=== PATIENT | female | born 1960 | race Caucasian/White ===

== ENCOUNTER 2016-12-24 15:48 | Emergency (ER) | payer OTHER ==
[2016-12-24] MEDS ORDERED: Pantoprazole 40 MG Vial IVPUSH ONE (16:07)
[2016-12-24] MEDS ORDERED: Ondansetron 4 MG/2 ML SDV IVPUSH ONE (16:07)
[2016-12-24] MEDS ORDERED: Famotidine 20 MG/2 ML SDV IVPUSH ONE (16:07)
--- NOTE | 2016-12-24 16:07 | EDM.PDOC ---
ED HPI GENERAL MEDICAL PROBLEM - General Chief Complaint: Abdominal Pain Stated Complaint: abdominal muscle pain Time Seen by Provider: 12/24/16 16:00 Source of Information: Reports: Patient, Family (), Old Records ([facility] chart/EMR) History Limitations: Reports: No Limitations - History of Present Illness INITIAL COMMENTS - FREE TEXT/NARRATIVE: Patient was brought to the emergency room via private automobile by her for evaluation of nonspecific epigastric abdominal pain, which has been present for the last 3-4 days. The patient has been in a water aerobic exercise program , which has been vigorous in nature, with additional vigorous activity at home during the last week, however no known acute injury. Her pain did become more vigorous in nature at about 04:30 a.m. this morning, and she did notice some swelling and a bruise in her upper abdominal region earlier this morning with some nonspecific occasional nausea today. Patient has not taken any medications for her symptoms to this point or she did have a normal bowel movement at noon today. No recent history of other abdominal pain, heartburn, emesis, diarrhea, melena, gross hematochezia, or any food intolerance, including fatty foods, etc.. The patient also denies any recent fever, cough, wheezing, dyspnea, etc.. Onset: Today, Gradual Onset Date: 12/24/16 Onset Time: 04:30 Duration: Constant, Getting Worse, Other (As above) Location: Reports: Abdomen. Denies: Head, Face, Neck, Chest, Back, Pelvis, Upper Extremity, Left, Upper Extremity, Right, Lower Extremity, Left, Lower Extremity, Right, Generalized, Radiates to Quality: Reports: Sharp, Stabbing Severity: Moderate Improves with: Reports: Rest Worsens with: Reports: Movement Context: Reports: Other (As above) Associated Symptoms: Reports: Nausea/Vomiting (No emesis). Denies: Confusion, Chest Pain, Cough, Diaphoresis, Fever/Chills, Headaches, Loss of Appetite, Malaise, Seizure, Shortness of Breath, Syncope, Weakness Treatments [employer] CHIEF: Reports: Other (see below) (None) Upper Mid-Anterior Abdomen Pain Score (Numeric/FACES): 6 - Related Data Allergies Allergy/AdvReac Type Severity Reaction Status Date / Time Penicillins Allergy Hives Verified 12/24/16 15:50 Home Meds: Home Meds . [No Known Home Meds] 12/24/16 [History] Past Medical History HEENT History: Reports: Allergic Rhinitis, Impaired Vision, Sinusitis, Other ( See Below). Denies: Cataract, Glaucoma, Hard of Hearing, Macular Degeneration, Retinal Detachment Other HEENT History: history of allergic rhinitis and sinusitis, wears glasses, nasal septum deviation by CT scan Cardiovascular History: Reports: Arrhythmia, Cardiomyopathy, High Cholesterol, Syncope, Other (See Below). Denies: Afib, Aneurysm, Blood Clots/VTE/DVT, CAD, Heart Failure, Heart Murmur, Hypertension, AL Other Cardiovascular History: Cardiac arrest with required defibrillation and code during severe gynecological bleed from placenta previa with surgery required as below, cardiomegaly by chest x-ray, hyperlipidemia not currently under therapy, no history of hypertension however note preeclampsia during as below Respiratory History: Reports: Bronchitis, Recurrent, COPD, Intubation, Previous , Pulmonary Fibrosis, Other (See Below). Denies: Asthma, PE, Pneumothorax, TB Other Respiratory History: COPD and pulmonary fibrosis by chest x-ray with no current therapy Gastrointestinal History: Reports: Chronic Constipation, Chronic Diarrhea, Gastritis, GERD, Other (See Below). Denies: Celiac Disease, Cholelithiasis, Colon Polyp, GI Bleed, Hepatitis, Hiatal Hernia, Inflammatory Bowel Disease, Irritable Bowel Syndrome, Jaundice, Pancreatitis, PUD Other Gastrointestinal History: Strep gastritis, esophagitis, and benign gastric polyp at time of colonoscopy on 09/24/07, multiple benign bilateral hepatic hemangiomas by ultrasound and CT scans as below, possible history of colitis without known inflammatory bowel disease Genitourinary History: Reports: None. 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 Denies: Endometriosis, Fibroids : 3 Para: 2 LMP (Approximate): Menopausal Other OB/BYN History: Surgical menopause as below with severe hemorrhage secondary to placenta previa, preeclampsia with first with otherwise full-term pregnancies 2 via Musculoskeletal History: Reports: Arthritis, Back Pain, Chronic, Fracture, Neck Pain, Chronic, Osteoarthritis, Other (See Below). Denies: Amputation, Gout, RA , SLE Other Musculoskeletal History: Left ankle fracture in 1994 with surgery as below Neurological History: Reports: Headaches, Chronic, Migraines. Denies: Cerebral Aneurysms, Concussion, CVA, Head Trauma, MS, Parkinson's, Seizure, TIA Psychiatric History: Reports: Anxiety, Depression, Other (See Below). Denies: Abuse, Victim of, ADD, ADHD, Addiction, Psych Hospitalization(s), PTSD, Suicide Attempt, Suicidal Ideation Other Psychiatric History: Anxiety depression disorder not currently requiring therapy Endocrine/Metabolic History: Denies: Diabetes, Type I, Diabetes, Type II, Hypothyroidism, IDDM Hematologic History: Reports: Anemia, Blood Transfusion(s) (1981 secondary to gynecological hemorrhage as above/below). Denies: B12 Deficiency, Iron Deficiency Immunologic History: Reports: None. Denies: AIDS, HIV, SLE Oncologic (Cancer) History: Reports: None. Denies: Basal Cell Carcinoma, Cervix , Hodgkin's Lymphoma, Leukemia, Lymphoma, Malignant Melanoma, Non-Hodgkin's Lymphoma, Squamous Cell Carcinoma Dermatologic History: Reports: None. Denies: Eczema, Psoriasis - Infectious Disease History Infectious Disease History: Reports: Chicken Pox, Mumps. Denies: C-Difficile, Measles, Meningitis, Mononucleosis, MRSA, Pertussis (Whooping Cough), Rubella, Scarlet Fever, Shingles, TB, VRE - Past Surgical History Head Surgeries/Procedures: Reports: None HEENT Surgical History: Reports: Oral Surgery, Other (See Below). Denies: Adenoidectomy, Cataract Surgery, Eye Surgery, Laser Surgery, LASIK, Myringotomy w Tube(s), Naso-Sinus Surgery, Tonsillectomy Other HEENT Surgeries/Procedures: [place] teeth extraction 4 at age 25 Cardiovascular Surgical History: Reports: None. Denies: Varicose, Vascular Surgery Respiratory Surgical History: Reports: None. Denies: Lung Biopsies, Thoracentesis GI Surgical History: Reports: Colonoscopy, EGD, Polypectomy, Other (See Below). Denies: Appendectomy, Cholecystectomy, Hernia, Abdominal, Hernia, Inguinal, Hernia Repair/Other Other GI Surgeries/Procedures: Colonoscopy and EGD on 09/24/07 with polypectomy of benign gastric polyp at that time Female Surgical History: Reports: Section, Hysterectomy, Other (See Below). Denies: Tubal Ligation Other Female Surgeries/Procedures: Hysterectomy with salpingo-oophorectomy and removal of partial ovary on 06/22/81 secondary to severe uterine hemorrhage from placenta previa at 7-1/2 months gestation with loss at that time , multiple previous transfusions during that , C-sections in 1977 and 1979 Endocrine Surgical History: Reports: None. Denies: Thyroid Biopsy Neurological Surgical History: Denies: C-Spine, Discectomy, Laminectomy, Lumbar Spine, Spinal Fusion, Vertebroplasty Musculoskeletal Surgical History: Reports: ORIF, Other (See Below). Denies: Arthroscopic Procedure, Carpal Tunnel, Ganglion Cyst, Joint Replacement, Shoulder Surgery Other Musculoskeletal Surgeries/Procedures:: ORIF of left ankle fracture in 1994 Oncologic Surgical History: Reports: None Dermatological Surgical History: Reports: None - Past Imaging History Past Imaging History: Reports: CAT Scan (CT of the head and sinuses on 02/14/15 and 12/31/11, CT of the chest with IV contrast on 04/26/13, CT of the abdomen and pelvis with IV contrast on 04/07/08), Mammogram (Last mammogram on 02/13/15), MRI (Left shoulder on 11/03/12), Ultrasound (Abdominal ultrasound on 09/22/07) Social & Family History - Family History GI: Reports: Inflammatory Bowel Disease, Other (See Below) Other GI Family History: Sister with ulcerative colitis - Tobacco Use Smoking Status *Q: Current Every Day Smoker Tobacco Use Within Last Twelve Months: Cigarettes Years of Tobacco use: 28 (Started smoking at age 28) Packs/Tins Daily: 1.5 Smoking Cessation Information Provided To Patient: Yes Second Hand Smoke Exposure: Yes Source of Second Hand Smoke Exposure: smokes Second Hand Smoke Education Provided: Yes - Caffeine Use Caffeine Use: Reports: Coffee ( 4 cups per day), Soda (1 soda per month), Tea ( Occasional). Denies: Energy Drinks - Alcohol Use Alcohol Use History: Yes Days Per Week of Alcohol Use: 7 (No previous DWIs, problems with alcohol abuse, etc.) Number of Drinks Per Day: 2 (Usually beer) Total Drinks Per Week: 14 Alcohol Use in Last Twelve Months: Yes Alcohol Use Frequency: Binges - Recreational Drug Use Recreational Drug Use: Yes Drug Use in Last 12 Months: Yes Recreational Drug Type: Reports: Marijuana/Hashish (Started using in her 20s). Denies: Amphetamines (Speed), Cocaine, Heroin, LSD (Acid), Methamphetamine, Morphine Recreational Drug Use Frequency: Daily Recreational Drug Route: Reports: Inhaled - Living Situation & Occupation Living situation: Reports: (Third marriage, divorce from the first 2 husbands with children from first marriage), with Family () Occupation: Unemployed ED ROS GENERAL - Review of Systems Review Of Systems: See Below Constitutional: Reports: No Symptoms. Denies: Fever, Weakness, Fatigue, Night Sweats, Diaphoresis, Decreased Appetite, Weight Loss, Weight Gain HEENT: Reports: Glasses. Denies: Dental Pain, Ear Discharge, Ear Pain, Hearing Loss, Nose Pain, Rhinitis, Sinus Problem, Throat Pain, Vertigo, Vision Change Respiratory: Reports: No Symptoms. Denies: Shortness of Breath, Pleuritic Chest Pain, Cough Cardiovascular: Reports: No Symptoms. Denies: Chest Pain, Blood Pressure Problem, Dyspnea on Exertion, Edema, Lightheadedness, Orthopnea, Palpitations, Syncope Endocrine: Reports: No Symptoms. Denies: Fatigue GI/Abdominal: Reports: Abdominal Pain, Nausea, Other (Abdominal wall muscle pain with small hematoma). Denies: Anorexia, Black Stool, Bloody Stool, Constipation, Diarrhea, Decreased Appetite, Difficulty Swallowing, Distension, Hematemesis, Hematochezia, Melena, Mucous in Stool, Stool Incontinence, Vomiting : Reports: No Symptoms. Denies: Discharge, Dysuria, Flank Pain, Frequency, Hematuria, Incontinence, Pain, Urgency, Urinary Retention Musculoskeletal: Reports: No Symptoms. Denies: Neck Pain, Shoulder Pain, Arm Pain, Back Pain, Leg Pain Skin: Reports: Bruising (Mild bruising and small hematoma in epigastric region) . Denies: Jaundice, Pallor, Diaphoresis, Wound Neurological: Reports: No Symptoms. Denies: Confusion, Dizziness, Headache, Numbness, Paresthesia, Tingling, Weakness Psychiatric: Reports: No Symptoms. Denies: Agitation, Anxiety, Confusion, Depression, Hallucinations, Homicidal Ideation, Suicidal Ideation Hematologic/Lymphatic: Reports: Easy Bruising Immunologic: Reports: No Symptoms ED EXAM, GENERAL - Physical Exam Exam: See Below Exam Limited By: No Limitations General Appearance: Alert, WD/WN, No Apparent Distress, Anxious (Mild to moderate) Eye Exam: Bilateral Eye: EOMI, Normal Inspection (No nystagmus), PERRL Ears: Normal External Exam, Normal Canal, Hearing Grossly Normal, Normal TMs Nose: Normal Inspection, Normal Mucosa, No Blood Throat/Mouth: Normal Inspection, Normal Lips, Normal Gums, Normal Oropharynx, Normal Voice, No Airway Compromise. No: Normal Teeth (Small caries and chipped tooth in the second posterior left upper premolar region), Dysphagia, Perioral Cyanosis Head: Atraumatic, Normocephalic. No: Facial Swelling, Facial Tenderness, Sinus Tenderness Neck: Normal Inspection, Supple, Non-Tender, Full Range of Motion. No: Carotid Bruit, Lymphadenopathy (L), Lymphadenopathy (R), Thyromegaly Respiratory/Chest: No Respiratory Distress, Lungs Clear, Normal Breath Sounds, No Accessory Muscle Use, Chest Non-Tender. No: Pleural Rub, Retractions Cardiovascular: Normal Peripheral Pulses, Regular Rate, Rhythm, No Edema, No Gallop, No JVD, No Murmur, No Rub. No: Gallop/S3, Gallop/S4, Friction Rub Peripheral Pulses: 2+: Radial (L), Radial (R), Dorsalis Pedis (L), Dorsalis Pedis (R) GI/Abdominal: Normal Bowel Sounds, No Organomegaly, No Distention, No Abnormal Bruit, No Mass, Pelvis Stable, Tender (Moderate palpation pain over the superior epigastric region at site of 2 cm in diameter subcutaneous hematoma with mild bruising in this area, no local warming, lymphangitis, or sign of infection). No: Guarding, Rebound, Hernia (Female) Exam: Deferred Rectal (Female) Exam: Deferred Back Exam: Normal Inspection, Full Range of Motion. No: CVA Tenderness (L), CVA Tenderness (R), Muscle Spasm Extremities: Normal Inspection, Normal Range of Motion, Non-Tender, No Pedal Edema, Normal Capillary Refill. No: Rae's Sign Neurological: Alert, Oriented, CN II-XII Intact, Normal Cognition, Normal Gait, No Motor/Sensory Deficits Psychiatric: Anxious (Moderate). No: Depressed Mood Skin Exam: Warm, Dry, Intact, No Rash, Ecchymosis (As above), Stud(s) ( Auricular regions bilaterally). No: Wound/Incision Lymphatic: No Adenopathy Course - Vital Signs Last Recorded V/S: Last Vital Signs Temp 37.1 C 12/24/16 16:13 Pulse 83 12/24/16 16:13 Resp 17 12/24/16 16:13 BP 121/55 L 12/24/16 16:13 Pulse Ox 95 12/24/16 16:13 Vital Signs - 24 hr 12/24/16 16:13 Temperature [ 37.1 C Temporal] Pulse, 83 Peripheral [ Left Pulse Oximetry] Respiratory 17 Rate Blood Pressure 121/55 L [Right Upper Arm] O2 Sat by Pulse 95 Oximetry - Orders/Labs/Meds Orders: Active Orders 24 hr Category Date Time Status Peripheral IV Care [RC] . DIRECTED Care 12/24/16 16:07 Active Nothing Per Oral Diet [DIET] Diet 12/24/16 Breakfast Active Abdomen Series w Chest 1V [CR] Stat Exams 12/24/16 16:07 Taken CULTURE URINE [RM] Stat Lab 12/24/16 16:07 Uncollected UA W/MICROSCOPIC [URIN] Urgent Lab 12/24/16 16:07 Uncollected Sodium Chloride 0.9% [Saline Flush] Med 12/24/16 16:07 Active 10 ml FLUSH ASDIRECTED PRN Obtain Past Medical Record [OM.PC] Urgent Oth 12/24/16 16:07 Active Peripheral IV Insertion Adult [OM.PC] Stat Oth 12/24/16 16:07 Ordered Resuscitation Status Stat Resus Stat 12/24/16 16:07 Ordered Medication Orders Sodium Chloride (Saline Flush) 10 ml FLUSH ASDIRECTED PRN PRN Reason: Keep Vein Open Last Admin: 12/24/16 17:40 Dose: 10 ml Admin: 12/24/16 16:24 Dose: 10 ml Labs: Laboratory Tests 12/24/16 12/24/16 12/24/16 Range/Units 16:15 16:15 16:15 WBC 11.0 H (4.0-10.2) K/uL RBC 4.99 (3.77-5.09) M/uL Hgb 16.1 H (11.7-15.5) g/dL Hct 47.3 H (34.0-46.0) % MCV 94.8 (84.0-98.0) fL MCH 32.3 (28.2-33.3) pg MCHC 34.0 (31.7-36.0) g/dL RDW 13.9 (11.2-14.1) % Plt Count 202 (150-350) K/uL Neut % (Auto) 60.6 (45.0-80.0) % Lymph % (Auto) 29.3 (10.0-50.0) % [place] % (Auto) 9.4 (2.0-14.0) % Eos % (Auto) 0.5 (0.0-5.0) % Baso % (Auto) 0.2 (0.0-2.0) % Neut # (Auto) 6.68 (1.40-7.00) K/uL Lymph # (Auto) 3.22 (0.50-3.50) K/uL [place] # (Auto) 1.03 H (0.00-1.00) K/uL Eos # (Auto) 0.05 (0.00-0.50) K/uL Baso # (Auto) 0.02 (0.00-0.20) K/uL PT 10.7 (9.8-11.7) SEC INR 1.0 APTT 28.6 (23.5-30.0) SEC Sodium (136-145) mmol/L Potassium (3.5-5.1) mmol/L Chloride (98-107) mmol/L Carbon Dioxide (21.0-32.0) mmol/L BUN (7-18) mg/dL Creatinine (0.51-1.17) mg/dL Est Cr Clr Drug Dosing mL/min Estimated GFR (MDRD) mL/min Glucose (74-106) mg/dL Lactic Acid (0.4-2.0) mmol/L Uric Acid (2.6-7.2) mg/dL Calcium (8.5-10.1) mg/dL Magnesium (1.8-2.4) mg/dL Total Bilirubin (0.2-1.0) mg/dL AST (15-37) U/L ALT (12-78) U/L Alkaline Phosphatase (46-116) IU/L Total Protein (6.4-8.2) g/dL Albumin (3.4-5.0) g/dL Amylase 41 (25-115) U/L Lipase (73-393) U/L 12/24/16 12/24/16 Range/Units 16:15 16:15 WBC (4.0-10.2) K/uL RBC (3.77-5.09) M/uL Hgb (11.7-15.5) g/dL Hct (34.0-46.0) % MCV (84.0-98.0) fL MCH (28.2-33.3) pg MCHC (31.7-36.0) g/dL RDW (11.2-14.1) % Plt Count (150-350) K/uL Neut % (Auto) (45.0-80.0) % Lymph % (Auto) (10.0-50.0) % [place] % (Auto) (2.0-14.0) % Eos % (Auto) (0.0-5.0) % Baso % (Auto) (0.0-2.0) % Neut # (Auto) (1.40-7.00) K/uL Lymph # (Auto) (0.50-3.50) K/uL [place] # (Auto) (0.00-1.00) K/uL Eos # (Auto) (0.00-0.50) K/uL Baso # (Auto) (0.00-0.20) K/uL PT (9.8-11.7) SEC INR APTT (23.5-30.0) SEC Sodium 141 (136-145) mmol/L Potassium 4.1 (3.5-5.1) mmol/L Chloride 104 (98-107) mmol/L Carbon Dioxide 28.7 (21.0-32.0) mmol/L BUN 9 (7-18) mg/dL Creatinine 0.63 (0.51-1.17) mg/dL Est Cr Clr Drug Dosing 78.86 mL/min Estimated GFR (MDRD) > 60 mL/min Glucose 93 (74-106) mg/dL Lactic Acid 1.3 (0.4-2.0) mmol/L Uric Acid 4.7 (2.6-7.2) mg/dL Calcium 9.2 (8.5-10.1) mg/dL Magnesium 1.9 (1.8-2.4) mg/dL Total Bilirubin 0.3 (0.2-1.0) mg/dL AST 17 (15-37) U/L ALT 15 (12-78) U/L Alkaline Phosphatase 105 (46-116) IU/L Total Protein 7.6 (6.4-8.2) g/dL Albumin 4.3 (3.4-5.0) g/dL Amylase (25-115) U/L Lipase 70 L (73-393) U/L Meds: Medications Generic Name Dose Route Start Last Admin Trade Name Freq PRN Reason Stop Dose Admin Sodium Chloride 10 ml 12/24/16 16:07 12/24/16 17:40 Saline Flush FLUSH 10 ml ASDIRECTED PRN Administration Keep Vein Open Discontinued Medications Generic Name Dose Route Start Last Admin Trade Name Freq PRN Reason Stop Dose Admin Famotidine 40 mg 12/24/16 16:07 12/24/16 16:24 Pepcid IVPUSH 12/24/16 16:08 40 mg ONETIME ONE Administration Ketorolac Tromethamine 30 mg 12/24/16 17:30 12/24/16 17:40 Toradol IM 12/24/16 17:31 30 mg ONETIME ONE Administration Ondansetron HCl 4 mg 12/24/16 16:07 12/24/16 16:24 Zofran IVPUSH 12/24/16 16:08 4 mg ONETIME ONE Administration Pantoprazole Sodium 40 mg 12/24/16 16:07 12/24/16 16:24 Protonix Iv IVPUSH 12/24/16 16:08 40 mg ONETIME ONE Administration - Radiology Interpretation Free Text/Narrative:: Acute abdominal x-ray shows evidence of moderate COPD and pulmonary fibrotic changes with no cardiomegaly, CHF, pulmonary infiltrates, or pneumothorax. Moderate diffuse stool and nonspecific bowel gaseous pattern with no fluid levels, free air, ileus, obstruction, etc. Departure - Departure Time of Disposition: 17:55 Disposition: Home, Self-Care 01 Condition: Good Clinical Impression: Peptic reflux disease, Tobacco abuse counseling, Illicit drug use, continuous, Subcutaneous hematoma, Mixed anxiety depressive disorder, COPD (chronic obstructive pulmonary disease) Abdominal pain Qualifiers: Abdominal location: epigastric Qualified Code(s): R10.13 - Epigastric pain Osteoarthritis Qualifiers: Osteoarthritis location: multiple joints Osteoarthritis type: primary Qualified Code(s): M15.0 - Primary generalized (osteo)arthritis - Discharge Information Instructions: Viral Gastroenteritis, Adult, [id number], Hematoma, Easy-to- Read Referrals: Keyana Mccormick PA-C [Primary Care Provider] - Forms: ED Department Discharge Additional Instructions: 1. Followup with your regular provider in 2-3 days as directed for reevaluation and recommended repeat CBC. 2. Ben[place] or equivalent, heating pad, and/or ice packs as directed. 3. [place] diet including encouragement of oral fluids such as sports drinks, etc. for 24-48 hours as directed. Advance to low-fat, low-cholesterol diet as tolerated thereafter. 4. Tylenol 650 mg by mouth every 4 hours and/or OTC ibuprofen 2-3 tabs by mouth every 6 hours with food as directed./needed. Next dose of ibuprofen in 6 hours as needed secondary to medications given in the emergency room 5. Stop all tobacco and illicit drug use KULDEEP as directed/per provided information and consider contacting [employer]uit [employer], etc.. - Problem List & Annotations (1) Subcutaneous hematoma SNOMED Code(s): 7297069 Code(s): T14.8 - OTHER INJURY OF UNSPECIFIED BODY REGION Status: Acute Priority: High Current Visit: Yes Onset Date: ~12/24/16 Annotation/Comment :: Symptomatic relief for small muscle strain and subcutaneous hematoma in epigastric region. Various therapeutic options were discussed with IV Toradol given prior to discharge. Close follow-up by her regular provider (2) Abdominal pain SNOMED Code(s): 29613786 Code(s): R10.9 - UNSPECIFIED ABDOMINAL PAIN Status: Acute Priority: High Current Visit: Yes Onset Date: ~12/24/16 Annotation/Comment:: Most of her abdominal discomfort appears to be musculoskeletal in nature secondary to subcutaneous hematoma and muscle strain as above. Nonspecific nausea with possible mild beginning viral gastroenteritis. Note mild leukocytosis with close follow-up by her regular providers as per discharge instructions. Further GI workup, etc. depending on her clinical course Qualifiers: Abdominal location: epigastric Qualified Code(s): R10.13 - Epigastric pain (3) Peptic reflux disease SNOMED Code(s): 40501127 Code(s): K21.9 - GASTRO-ESOPHAGEAL REFLUX DISEASE WITHOUT ESOPHAGITIS Status: Chronic Priority: Medium Current Visit: Yes Annotation/Comment:: Previously stable by history with high-dose IV Pepcid and IV Protonix given as GI prophylaxis (4) Tobacco abuse counseling SNOMED Code(s): 772904929, 825965059, 908599031 Code(s): Z71.6 - TOBACCO ABUSE COUNSELING Status: Chronic Priority: Medium Current Visit: Yes Annotation/Comment:: The patient and her were counseled on tobacco cessation, which was strongly encouraged. Information was provided at discharge (5) Illicit drug use, continuous SNOMED Code(s): 671753359 Code(s): F19.90 - OTHER PSYCHOACTIVE SUBSTANCE USE, UNSPECIFIED, UNCOMPLICATED Status: Chronic Priority: Medium Current Visit: Yes Annotation/Comment:: Daily marijuana use. Cessation of illicit drugs strongly encouraged especially in light of her history of anxiety depression disorder (6) Osteoarthritis SNOMED Code(s): 657380851 Code(s): M19.90 - UNSPECIFIED OSTEOARTHRITIS, UNSPECIFIED SITE Status: Chronic Priority: Medium Current Visit: Yes Annotation/Comment:: Otherwise stable by patient history Qualifiers: Osteoarthritis location: multiple joints Osteoarthritis type: primary Qualified Code(s): M15.0 - Primary generalized (osteo)arthritis (7) Mixed anxiety depressive disorder SNOMED Code(s): 006623104 Code(s): F41.8 - OTHER SPECIFIED ANXIETY DISORDERS Status: Chronic Priority: Medium Current Visit: Yes Annotation/Comment:: Moderate anxious affect today. Continue to observe closely by her regular provider (8) COPD (chronic obstructive pulmonary disease) SNOMED Code(s): 55177464 Code(s): J44.9 - CHRONIC OBSTRUCTIVE PULMONARY DISEASE, UNSPECIFIED Status : Chronic Priority: Medium Current Visit: Yes Annotation/Comment:: COPD and pulmonary fibrosis by chest x-ray with no recent fever or bronchitic type symptoms. Note current tobacco use and mild leukocytosis. She may benefit from PFTs Qualifiers: COPD type: emphysema Emphysema type: panlobular Qualified Code(s): J43.1 - Panlobular emphysema - Problem List Review Problem List Initiated/Reviewed/Updated: Yes - My Orders Last 24 Hours: My Active Orders 12/24/16 16:07 Peripheral IV Care [RC] . DIRECTED Abdomen Series w Chest 1V [CR] Stat CULTURE URINE [RM] Stat UA W/MICROSCOPIC [URIN] Urgent Sodium Chloride 0.9% [Saline Flush] 10 ml FLUSH ASDIRECTED PRN Obtain Past Medical Record [OM.PC] Urgent Peripheral IV Insertion Adult [OM.PC] Stat Resuscitation Status Stat 12/24/16 Breakfast Nothing Per Oral Diet [DIET] - Assessment/Plan Last 24 Hours: My Active Orders 12/24/16 16:07 Peripheral IV Care [RC] . DIRECTED Abdomen Series w Chest 1V [CR] Stat CULTURE URINE [RM] Stat UA W/MICROSCOPIC [URIN] Urgent Sodium Chloride 0.9% [Saline Flush] 10 ml FLUSH ASDIRECTED PRN Obtain Past Medical Record [OM.PC] Urgent Peripheral IV Insertion Adult [OM.PC] Stat Resuscitation Status Stat 12/24/16 Breakfast Nothing Per Oral Diet [DIET] Assessment:: As above Plan: As above. Extensive precautions were given to the patient and her , who are in agreement with the treatment plan. See Patient Instructions for further treatment and plan.
[2016-12-24 16:14] VITALS: BP 121/55
[2016-12-24] MEDS: Sodium Chloride 0.9% 10 ML Syringe FLUSH PRN ×2 (16:24→17:40)
[2016-12-24 16:37] LABS: CHLORIDE,CL 104 mmol/L (98-107); SODIUM,NA 141 mmol/L (136-145)
[2016-12-24] MEDS ORDERED: Ketorolac 30 MG/ML SDV IM ONE (17:30)
== END 2016-12-24 17:55 | disposition home or self-care (01) ==
LOC: LL.ED 15:48
DX: K21.9 Gastro-esophageal reflux disease without esophagitis (principal); F19.90 Other psychoactive substance use, unspecified, uncomplicated; J44.9 Chronic obstructive pulmonary disease, unspecified; M15.0 Primary generalized (osteo)arthritis; E78.00 Pure hypercholesterolemia, unspecified; Z86.2 Personal history of diseases of the blood and blood-forming organs and certain disorders involving the immune mechanism; Z88.0 Allergy status to penicillin; Z71.6 Tobacco abuse counseling; Z90.710 Acquired absence of both cervix and uterus; F17.210 Nicotine dependence, cigarettes, uncomplicated
CPT/HCPCS: 36415; 74022; 80053; 82150; 82272; 83605; 83690; 83735; 84550; 85025; 85610; 85730; 96372; 96374; 96375; 99284; C9113; J1885; J2405; J7050; S0028

== ENCOUNTER 2017-05-15 13:49 | Observation (INO) | payer OTHER ==
[2017-05-15] MEDS ORDERED: Tamsulosin 0.4 MG Cap.ER PO ONE (14:40)
[2017-05-15] MEDS ORDERED: Sodium Chloride 0.9% 1,000 ML IV SCH (14:45)
[2017-05-15] MEDS ORDERED: Morphine 2 MG/ML Syringe IVPUSH PRN (14:46)
[2017-05-15] MEDS ORDERED: Ondansetron 4 MG/2 ML SDV IVPUSH PRN ×2 (14:47→15:45)
--- NOTE | 2017-05-15 15:04 | PCM.HP ---
H&P History of Present Illness - General Date of Service: 05/15/17 Admit Problem/Dx: Admission Diagnosis/Problem Admission Diagnosis/Problem Renal colic on left side Source of Information: Patient, Family History Limitations: Reports: No Limitations - History of Present Illness Onset of Symptoms: Reports: Gradual Symptom Onset Date: 05/14/17 Duration of Symptoms: Reports: Day(s): (Onset yesterday), Colic, Getting Worse Location: Reports: Abdomen, Other (Left flank radiating around to abdomen) Quality: Reports: Sharp Severity: Severe Improves with: Reports: None Worsens with: Reports: None Associated Symptoms: Reports: Fever/Chills, Loss of Appetite, Nausea/Vomiting - Related Data Allergies/Adverse Reactions: Allergies Allergy/AdvReac Type Severity Reaction Status Date / Time Penicillins Allergy Hives Verified 12/24/16 15:50 Home Medications: Home Meds . [No Known Home Meds] 12/24/16 [History] Past Medical History HEENT History: Reports: Allergic Rhinitis, Impaired Vision, Sinusitis, Other ( See Below) Other HEENT History: history of allergic rhinitis and sinusitis, wears glasses, nasal septum deviation by CT scan Cardiovascular History: Reports: Arrhythmia, Cardiomyopathy, High Cholesterol, Syncope, Other (See Below) Other Cardiovascular History: Cardiac arrest with required defibrillation and code during severe gynecological bleed from placenta previa with surgery required as below, cardiomegaly by chest x-ray, hyperlipidemia not currently under therapy, no history of hypertension however note preeclampsia during as below Respiratory History: Reports: Bronchitis, Recurrent, COPD, Intubation, Previous , Pulmonary Fibrosis, Other (See Below) Other Respiratory History: COPD and pulmonary fibrosis by chest x-ray with no current therapy Gastrointestinal History: Reports: Chronic Constipation, Chronic Diarrhea, Gastritis, GERD, Other (See Below) Other Gastrointestinal History: Strep gastritis, esophagitis, and benign gastric polyp at time of colonoscopy on 09/24/07, multiple benign bilateral hepatic hemangiomas by ultrasound and CT scans as below, possible history of colitis without known inflammatory bowel disease Genitourinary History: Reports: None CLIENT ADVOCATE History: Reports: Dysfunctional Uterine Bleeding, Other OB/BYN History: Surgical menopause as below with severe hemorrhage secondary to placenta previa, preeclampsia with first with otherwise full-term pregnancies 2 via Musculoskeletal History: Reports: Arthritis, Back Pain, Chronic, Fracture, Neck Pain, Chronic, Osteoarthritis, Other (See Below) Other Musculoskeletal History: Left ankle fracture in 1994 with surgery as below Neurological History: Reports: Headaches, Chronic, Migraines Psychiatric History: Reports: Anxiety, Depression, Other (See Below) Other Psychiatric History: Anxiety depression disorder not currently requiring therapy Hematologic History: Reports: Anemia, Blood Transfusion(s) Immunologic History: Reports: None Oncologic (Cancer) History: Reports: None Dermatologic History: Reports: None - Infectious Disease History Infectious Disease History: Reports: Chicken Pox, Mumps - Past Surgical History Head Surgeries/Procedures: Reports: None HEENT Surgical History: Reports: Oral Surgery, Other (See Below) Other HEENT Surgeries/Procedures: Deary teeth extraction 4 at age 25 Cardiovascular Surgical History: Reports: None Respiratory Surgical History: Reports: None GI Surgical History: Reports: Colonoscopy, EGD, Polypectomy, Other (See Below) Other GI Surgeries/Procedures: Colonoscopy and EGD on 09/24/07 with polypectomy of benign gastric polyp at that time Female Surgical History: Reports: Section, Hysterectomy, Other (See Below) Other Female Surgeries/Procedures: Hysterectomy with salpingo-oophorectomy and removal of partial ovary on 06/22/81 secondary to severe uterine hemorrhage from placenta previa at 7-1/2 months gestation with loss at that time , multiple previous transfusions during that , C-sections in 1977 and 1979 Endocrine Surgical History: Reports: None Musculoskeletal Surgical History: Reports: ORIF, Other (See Below) Other Musculoskeletal Surgeries/Procedures:: ORIF of left ankle fracture in 1994 Oncologic Surgical History: Reports: None Dermatological Surgical History: Reports: None - Past Imaging History Past Imaging History: Reports: CAT Scan (CT of the head and sinuses on 02/14/15 and 12/31/11, CT of the chest with IV contrast on 04/26/13, CT of the abdomen and pelvis with IV contrast on 04/07/08), Mammogram (Last mammogram on 02/13/15), MRI (Left shoulder on 11/03/12), Ultrasound (Abdominal ultrasound on 09/22/07) Social & Family History - Family History GI: Reports: Inflammatory Bowel Disease, Other (See Below) Other GI Family History: Sister with ulcerative colitis - Tobacco Use Smoking Status *Q: Current Every Day Smoker Years of Tobacco use: 28 Packs/Tins Daily: 1.5 Second Hand Smoke Exposure: Yes - Caffeine Use Caffeine Use: Reports: Coffee, Soda, Tea - Alcohol Use Days Per Week of Alcohol Use: 7 Number of Drinks Per Day: 2 Total Drinks Per Week: 14 - Recreational Drug Use Recreational Drug Use: Yes Drug Use in Last 12 Months: Yes Recreational Drug Type: Reports: Marijuana/Hashish Recreational Drug Use Frequency: Daily - Living Situation & Occupation Living situation: Reports: (Third marriage, divorce from the first 2 husbands with children from first marriage), with Family () Occupation: Unemployed H&P Review of Systems - Review of Systems: Review Of Systems: See Below General: Reports: Fever, Chills, Malaise, Weakness, Decreased Appetite HEENT: Reports: No Symptoms Pulmonary: Reports: No Symptoms Cardiovascular: Reports: No Symptoms Gastrointestinal: Reports: Abdominal Pain, Decreased Appetite, Nausea, Vomiting Genitourinary: Reports: Frequency, Hematuria, Flank Pain (left) Musculoskeletal: Reports: Back Pain (left) Skin: Reports: No Symptoms Psychiatric: Reports: No Symptoms Neurological: Reports: No Symptoms Hematologic/Lymphatic: Reports: No Symptoms Immunologic: Reports: No Symptoms Exam - Exam Exam: See Below - Exam General: Alert, Oriented, Moderate Distress (moderate to severe distress at times, writhing in pain) HEENT: Conjunctiva Clear, EACs Clear, EOMI Neck: Supple, Trachea Midline, 2 Lungs: Clear to Auscultation, Normal Respiratory Effort Cardiovascular: Regular Rate, Regular Rhythm GI/Abdominal Exam: No Mass, Tender (left lower quadrant) Rectal (Female) Exam: Deferred Back Exam: CVA Tenderness (L) Extremities: Normal Inspection Skin: Warm, Dry, Intact Neurological: Cranial Nerves Intact Neuro Extensive - Mental Status: Alert, Oriented x3 Psychiatric: Alert, Anxious (secondary to severe pain) *Q Meaningful Use (ADM) - VTE *Q VTE Criteria *Q: - Stroke *Q Stroke Criteria *Q: - AMI *Q AMI Criteria *Q: - Problem List (1) Nausea & vomiting SNOMED Code(s): 65456439 ICD Code: R11.2 - NAUSEA WITH VOMITING, UNSPECIFIED Status: Acute Priority: High Current Visit: Yes Problem List Initiated/Reviewed/Updated: Yes Orders Last 24hrs: Active Orders 24 hr Category Date Time Status Patient Status [ADT] Routine ADT 05/15/17 14:36 Ordered Height and Weight [RC] UPON Care 05/15/17 14:36 Ordered Intake and Output [RC] QSHIFT Care 05/15/17 14:38 Ordered May Shower [RC] ASDIRECTED Care 05/15/17 14:36 Ordered Peripheral IV Care [RC] . DIRECTED Care 05/15/17 14:39 Ordered Strain Urine [RC] ASDIRECTED Care 05/15/17 14:43 Ordered Up ad Darline [RC] ASDIRECTED Care 05/15/17 14:36 Ordered Vital Signs [RC] Q4HWA Care 05/15/17 14:36 Ordered Clear Liquid Diet [DIET] Diet 05/15/17 Dinner Ordered Abdomen 2V AP Flat Upright [CR] Routine Exams 05/15/17 14:50 Ordered Abdomen Pelvis wo Cont [CT] Routine Exams 05/15/17 15:00 Taken AMYLASE [CHEM] Routine Lab 05/16/17 05:11 Ordered C-REACTIVE PROTEIN [CHEM] AM Lab 05/16/17 05:11 Ordered CBC WITH AUTO DIFF [HEME] AM Lab 05/16/17 05:11 Ordered COMPREHENSIVE METABOLIC PN,CMP [CHEM] AM Lab 05/16/17 05:11 Ordered LIPASE [CHEM] Routine Lab 05/16/17 05:11 Ordered Ketorolac [Toradol] Med 05/15/17 16:00 Ordered 15 mg IVPUSH Q6H Morphine Med 05/15/17 14:46 Ordered 2 mg IVPUSH Q4H PRN Ondansetron [Zofran] Med 05/15/17 14:47 Ordered 4 mg IVPUSH Q4H PRN Sodium Chloride 0.9% @ 125 MLS/HR (1000ml) Med 05/15/17 14:45 Ordered Sodium Chloride 0.9% [Normal Saline] 1,000 ml IV ASDIRECTED Sodium Chloride 0.9% [Saline Flush] Med 05/15/17 14:39 Ordered 10 ml FLUSH ASDIRECTED PRN Tamsulosin [Flomax] Med 05/16/17 07:00 Ordered 0.4 mg PO PCBREAKFAST Peripheral IV Insertion Adult [OM.PC] Routine Oth 05/15/17 14:39 Ordered Resuscitation Status Routine Resus Stat 05/15/17 14:36 Ordered Medication Orders Sodium Chloride (Normal Saline) 1,000 mls @ 125 mls/hr IV ASDIRECTED LILIANA Ketorolac Tromethamine (Toradol) 15 mg IVPUSH Q6H [facility] Stop: 05/20/17 14:44 Morphine Sulfate (Morphine) 2 mg IVPUSH Q4H PRN PRN Reason: Pain Ondansetron HCl (Zofran) 4 mg IVPUSH Q4H PRN PRN Reason: Nausea/Vomiting Sodium Chloride (Saline Flush) 10 ml FLUSH ASDIRECTED PRN PRN Reason: Keep Vein Open Tamsulosin HCl (Flomax) 0.4 mg PO DAILY@0800 [facility] Assessment/Plan Comment:: 05-15-17 Etienne Grace PA-C Admitting for observation for suspected left renal stone/renal colic. Initially evaluated in [facility] after presentation with barber. 24 hours of increasing left flank pain radiating around laterally and anteriorly to LLQ abdomen, nausea and vomiting. No prior history of kidney stone. Some urinary frequency. Has felt feverish/chilled. UA positive for blood. She was given IM promethazine for the nausea and vomiting in the clinic, and Toradol and Valium IM for the acute flank pain. Abd/ pelvic CT scan with renal stone protocol ordered. Getting abdominal x-rays after admit. Labs ordered for am. Dr. Lopez consulted regarding this admit.
[2017-05-15] MEDS: Sodium Chloride 0.9% 10 ML Syringe FLUSH PRN ×2 (15:17→16:18)
[2017-05-15] MEDS ORDERED: Ondansetron 4 MG/2 ML SDV IVPUSH ONE (15:44)
[2017-05-15 15:59] VITALS: BP 132/70
[2017-05-15] MEDS ORDERED: Ketorolac 15 MG/ML SDV IVPUSH SCH (16:00)
--- NOTE | 2017-05-15 16:51 | PCM.DCSUM1 ---
Discharge Summary - Hospital Course Brief History: Initially admitted for observation, with concern for renal stone/ colic. Acute left flank pain radiating laterally and anteriorly to LLQ abdomen. Nauseated, vomiting. - Discharge Data Discharge Date: 05/15/17 Discharge Disposition: DC/Tfer to [facility] Condition: Poor - Discharge Diagnosis/Problem(s) (1) Nausea & vomiting SNOMED Code(s): 86326421 ICD Code: R11.2 - NAUSEA WITH VOMITING, UNSPECIFIED Status: Acute Priority: High Current Visit: Yes - Patient Instructions Diet: NPO Activity: Bedrest Driving: Do Not Drive Showering/Bathing: No Showering - Discharge Plan Home Medications: Home Meds . [No Known Home Meds] 12/24/16 [History] Forms: Interfacility Transfer EMTALA - Discharge Summary/Plan Comment DC Time >30 min.: Yes (Consulted with [place] Hospitalist Dr. Angelo, transferring ambulance.) Discharge Summary/Plan Comment: Patient is being transferred for direct admit to [facility], accepted by Hospitalist Dr. Angelo. Radiology read had no concern for renal stone or obstructing process but indicated retroperitoneal lymph nodes and concern for lymphoma. Discussed with patient and . Consulted Dr. Jessica Frank. - Patient Data Vitals - Most Recent: Last Vital Signs Temp 98.1 F 05/15/17 15:01 Pulse 81 05/15/17 15:01 Resp BP 132/70 05/15/17 15:01 Pulse Ox 96 05/15/17 15:01 Lab Results - Last 24 hrs: Laboratory Results - last 24 hr 05/15/17 Range/Units 13:15 Lactic Acid 1.6 (0.4-2.0) mmol/L Med Orders - Current: Current Medications Sodium Chloride (Normal Saline) 1,000 mls @ 125 mls/hr IV ASDIRECTED LILIANA Last Admin: 05/15/17 15:25 Dose: 125 mls/hr Iopamidol (Isovue-300 (61%)) 100 ml IVPUSH ONETIME ONE Stop: 05/15/17 17:01 Morphine Sulfate (Morphine) 2 mg IVPUSH Q4H PRN PRN Reason: Pain Last Admin: 05/15/17 15:30 Dose: 2 mg Ondansetron HCl (Zofran) 8 mg IVPUSH Q6H PRN PRN Reason: Nausea/Vomiting Sodium Chloride (Saline Flush) 10 ml FLUSH ASDIRECTED PRN PRN Reason: Keep Vein Open Last Admin: 05/15/17 16:18 Dose: 10 ml Discontinued Medications Ketorolac Tromethamine (Toradol) 15 mg IVPUSH Q6H [facility] Stop: 05/20/17 14:44 Last Admin: 05/15/17 15:17 Dose: 15 mg Ondansetron HCl (Zofran) 4 mg IVPUSH Q4H PRN PRN Reason: Nausea/Vomiting Last Admin: 05/15/17 15:16 Dose: 4 mg Ondansetron HCl (Zofran) 4 mg IVPUSH ONETIME ONE Stop: 05/15/17 15:45 Last Admin: 05/15/17 16:18 Dose: 4 mg Tamsulosin HCl (Flomax) 0.4 mg PO ONETIME ONE Stop: 05/15/17 14:41 Last Admin: 05/15/17 15:23 Dose: 0.4 mg Tamsulosin HCl (Flomax) 0.4 mg PO DAILY@0800 [facility] *Q Meaningful Use (DIS) - VTE *Q VTE Criteria *Q: - Stroke *Q Stroke Criteria *Q: - AMI *Q AMI Criteria *Q:
[2017-05-15] MEDS ORDERED: Morphine 2 MG/ML Syringe IVPUSH ONE (16:54)
[2017-05-15] MEDS ORDERED: Iopamidol 612 MG/ML 100 ML Bottle IVPUSH ONE (17:00)
[2017-05-16] MEDS ORDERED: Tamsulosin 0.4 MG Cap.ER PO SCH (08:00)
== END 2017-05-15 17:30 ==
LOC: LL.CT 13:49 → LL.MS 14:26
PROVIDERS: ADMIT Physician Assistant; ATTEND Family Medicine
DX: R11.2 Nausea with vomiting, unspecified (principal); J44.9 Chronic obstructive pulmonary disease, unspecified; E78.00 Pure hypercholesterolemia, unspecified; K59.09 Other constipation; F41.9 Anxiety disorder, unspecified; F32.9 Major depressive disorder, single episode, unspecified; Z90.710 Acquired absence of both cervix and uterus; Z79.899 Other long term (current) drug therapy; Z88.0 Allergy status to penicillin; Z98.890 Other specified postprocedural states; F17.210 Nicotine dependence, cigarettes, uncomplicated
CPT/HCPCS: 36415; 71260; 74176; 74177; 83605; 96361; 96374; 96375; 96376; A9270; G0378; G0379; J1885; J2270; J2405; J7030; J7050; Q9967

== ENCOUNTER 2021-04-05 11:47 | Emergency (ER) | payer OTHER ==
[2021-04-05] MEDS ORDERED: HYDROmorphone 1 MG/ML Syringe IVPUSH ONE (12:03)
[2021-04-05] MEDS ORDERED: Ondansetron 4 MG/2 ML SDV IVPUSH ONE ×2 (12:03→16:23)
[2021-04-05] MEDS ORDERED: Norflurane/HFc 245FA Medium Stream Spray 103.5 ML Can ONE (12:03)
[2021-04-05] MEDS: Sodium Chloride 0.9% 10 ML Syringe FLUSH PRN ×4 (12:20→15:07)
[2021-04-05 12:50] LABS: ANION GAP 10.8 meq/L (7-15); CHLORIDE,CL 106 mmol/L (98-107); SODIUM,NA 145 mmol/L (136-145)
[2021-04-05] MEDS ORDERED: Lactated Ringers 1,000 ML IV SCH ×2 (13:30→16:45)
[2021-04-05] MEDS: Lactated Ringers 1,000 ML IV SCH ×2 (15:07→16:50)
--- NOTE | 2021-04-05 15:48 | EDM.PDOC ---
ED HPI GENERAL MEDICAL PROBLEM - General Chief Complaint: Gastrointestinal Problem Stated Complaint: left flank/back pain, dry heaving Time Seen by Provider: 04/05/21 12:02 Source of Information: Reports: Patient History Limitations: Reports: No Limitations - History of Present Illness INITIAL COMMENTS - FREE TEXT/NARRATIVE: Pt. presents to ER with complaints of L sided flank pain, nausea, vomiting, and chronic RUQ abdominal pain. Pt. has a history of gallstones and is undergoing a lap caterina in April. Pt. has a history of stage 3 lymphoma. She states that she has had the pain in her L flank area chronically. It is thought to be secondary to her lymphoma. She states that she has also been nauseated and has been vomiting. She is currently out of [employer] and was unable to locate her tramadol that she takes for this chronic discomfort. She states that she has been up vomiting all night. Pt. states that she recently finished a long road trip and states that she has also been painting at her house and thinks she may have "overdone it". Pt. denies any cough. No chest congestion. No sore throat, rhinorrhea or congestion. Denies any fever or chills. No bloody stools. Onset: Today Onset Date: 04/05/21 Location: Reports: Chest, Back Quality: Reports: Sharp, Stabbing Severity: Severe Associated Symptoms: Reports: Nausea/Vomiting. Denies: Confusion, Chest Pain, Cough, Diaphoresis, Fever/Chills, Headaches, Rash, Seizure, Shortness of Breath, Syncope Left Flank Pain Score (Numeric/FACES): 6 - Related Data Allergies Allergy/AdvReac Type Severity Reaction Status Date / Time latex Allergy Blisters Verified 04/05/21 15:00 Penicillins Allergy Hives Verified 04/05/21 15:00 Home Meds: Home Meds ALPRAZolam [Alprazolam] 1 tab PO TID PRN 03/26/18 [History] buPROPion [buPROPion XL] 150 mg PO DAILY 03/26/18 [History] Acetaminophen [Tylenol] 650 mg PO Q4HR PRN 05/19/20 [History] Ascorbate Calcium [Vitamin C] 500 mg PO DAILY 05/19/20 [History] Fluticasone Propionate [Flonase] 1 spray NASBOTH DAILY PRN 05/19/20 [History] diphenhydrAMINE [Benadryl] 25 mg PO BEDTIME 05/19/20 [History] Cyclobenzaprine HCl 5 mg PO TID PRN 12/14/20 [History] traMADol [Ultram] 50 mg PO Q4HR 12/14/20 [History] Past Medical History HEENT History: Reports: Allergic Rhinitis, Impaired Vision, Sinusitis, Other (See Below) Other HEENT History: history of allergic rhinitis and sinusitis, wears glasses, nasal septum deviation by CT scan Cardiovascular History: Reports: Arrhythmia, Cardiomyopathy, High Cholesterol, Syncope, Other (See Below) Other Cardiovascular History: Cardiac arrest with required defibrillation and code during severe gynecological bleed from placenta previa with surgery required as below, cardiomegaly by chest x-ray, hyperlipidemia not currently under therapy, no history of hypertension however note preeclampsia during as below Respiratory History: Reports: Bronchitis, Recurrent, COPD, Intubation, Previous, Pulmonary Fibrosis, Other (See Below) Other Respiratory History: COPD and pulmonary fibrosis by chest x-ray with no current therapy Gastrointestinal History: Reports: Chronic Constipation, Chronic Diarrhea, Gastritis, GERD, Other (See Below) Other Gastrointestinal History: Strep gastritis, esophagitis, and benign gastric polyp at time of colonoscopy on 09/24/07, multiple benign bilateral hepatic hemangiomas by ultrasound and CT scans as below, possible history of colitis without known inflammatory bowel disease Genitourinary History: Reports: None [employer] History: Reports: Dysfunctional Uterine Bleeding, Other [employer] History: Surgical menopause as below with severe hemorrhage secondary to placenta previa, preeclampsia with first with otherwise full-term pregnancies 2 via Musculoskeletal History: Reports: Arthritis, Back Pain, Chronic, Fracture, Neck Pain, Chronic, Osteoarthritis, Other (See Below) Other Musculoskeletal History: Left ankle fracture in 1994 with surgery as below Neurological History: Reports: Headaches, Chronic, Migraines Psychiatric History: Reports: Anxiety, Depression, Other (See Below) Other Psychiatric History: Anxiety depression disorder not currently requiring therapy Hematologic History: Reports: Anemia, Blood Transfusion(s) Immunologic History: Reports: None Oncologic (Cancer) History: Reports: None Dermatologic History: Reports: None - Infectious Disease History Infectious Disease History: Reports: Chicken Pox, Mumps - Past Surgical History Head Surgeries/Procedures: Reports: None HEENT Surgical History: Reports: Oral Surgery, Other (See Below) Other HEENT Surgeries/Procedures: [place] teeth extraction 4 at age 25 Cardiovascular Surgical History: Reports: None Respiratory Surgical History: Reports: None GI Surgical History: Reports: Colonoscopy, EGD, Polypectomy, Other (See Below) Other GI Surgeries/Procedures: Colonoscopy and EGD on 09/24/07 with polypectomy of benign gastric polyp at that time Female Surgical History: Reports: Section, Hysterectomy, Other (See Below) Other Female Surgeries/Procedures: Hysterectomy with salpingo-oophorectomy and removal of partial ovary on 06/22/81 secondary to severe uterine hemorrhage from placenta previa at 7-1/2 months gestation with loss at that time, multiple previous transfusions during that , C-sections in 1977 and Endocrine Surgical History: Reports: None Musculoskeletal Surgical History: Reports: ORIF, Other (See Below) Other Musculoskeletal Surgeries/Procedures:: ORIF of left ankle fracture in 1994 Oncologic Surgical History: Reports: None Dermatological Surgical History: Reports: None - Past Imaging History Past Imaging History: Reports: CAT Scan (CT of the head and sinuses on 02/14/15 and 12/31/11, CT of the chest with IV contrast on 04/26/13, CT of the abdomen and pelvis with IV contrast on 04/07/08), Mammogram (Last mammogram on 02/13/15), MRI (Left shoulder on 11/03/12), Ultrasound (Abdominal ultrasound on 09/22/07) Social & Family History - Family History Family Medical History: No Pertinent Family History GI: Reports: Inflammatory Bowel Disease, Other (See Below) Other GI Family History: Sister with ulcerative colitis - Caffeine Use Caffeine Use: Reports: Coffee, Soda, Tea - Living Situation & Occupation Living situation: Reports: (Third marriage, divorce from the first 2 husbands with children from first marriage), with Family () Occupation: Unemployed ED ROS GENERAL - Review of Systems Review Of Systems: See Below Constitutional: Reports: No Symptoms HEENT: Reports: No Symptoms Respiratory: Reports: No Symptoms Cardiovascular: Reports: No Symptoms Endocrine: Reports: No Symptoms GI/Abdominal: Reports: Abdominal Pain (L flank and RUQ acute on chronic pain), Nausea, Vomiting. Denies: Black Stool, Bloody Stool : Reports: No Symptoms Musculoskeletal: Reports: No Symptoms Skin: Reports: No Symptoms Neurological: Reports: No Symptoms Psychiatric: Reports: No Symptoms Hematologic/Lymphatic: Reports: No Symptoms Immunologic: Reports: No Symptoms ED EXAM, GENERAL - Physical Exam Exam: See Below Exam Limited By: No Limitations General Appearance: Alert, WD/WN, No Apparent Distress Throat/Mouth: Normal Lips, Normal Voice, No Airway Compromise Head: Atraumatic, Normocephalic Respiratory/Chest: No Respiratory Distress, No Accessory Muscle Use, Chest Non- Tender, Decreased Breath Sounds, Other (denies dyspnea) Cardiovascular: Normal Peripheral Pulses, Regular Rate, Rhythm, No Edema, No JVD, No Murmur Peripheral Pulses: 4+: Radial (R) GI/Abdominal: Normal Bowel Sounds, Soft, No Organomegaly, No Distention, No Mass, Pelvis Stable, Tender (L flank area tender to palpation) (Female) Exam: Deferred Rectal (Female) Exam: Deferred Back Exam: Normal Inspection, Full Range of Motion Extremities: Normal Inspection, Normal Range of Motion, Non-Tender, No Pedal Edema Neurological: Alert, Oriented, CN II-XII Intact, Normal Cognition, Normal Reflexes, No Motor/Sensory Deficits Psychiatric: Normal Affect, Normal Mood Skin Exam: Warm, Dry, Intact, Normal Color, No Rash Course - Vital Signs Last Recorded V/S: Last Vital Signs Temp 36.9 C 04/05/21 12:02 Pulse 101 H 04/05/21 16:46 Resp 18 04/05/21 16:46 BP 135/75 04/05/21 16:46 Pulse Ox 98 04/05/21 16:46 - Orders/Labs/Meds Orders: Active Orders 24 hr Category Date Time Status Implanted Port Access [RC] DAILY Care 04/05/21 12:02 Active Abdomen Pelvis wo Cont [CT] Stat Exams 04/05/21 15:57 Taken Lactated Ringers [Ringers, Lactated] 1,000 ml Med 04/05/21 13:30 Active IV ASDIRECTED Lactated Ringers [Ringers, Lactated] 1,000 ml Med 04/05/21 15:00 Active IV ASDIRECTED Lactated Ringers [Ringers, Lactated] 1,000 ml Med 04/05/21 16:45 Active IV ASDIRECTED Sodium Chloride 0.9% [Saline Flush] Med 04/05/21 12:20 Active 10 ml FLUSH ASDIRECTED PRN Medication Orders Lactated Ringer's (Ringers, Lactated) 1,000 mls @ 1,000 mls/hr IV ASDIRECTED LILIANA Last Admin: 04/05/21 13:38 Dose: 1,000 mls/hr Documented by: ALISHA Lactated Ringer's (Ringers, Lactated) 1,000 mls @ 500 mls/hr IV ASDIRECTED LILIANA Last Admin: 04/05/21 16:50 Dose: 500 mls/hr Documented by: Infusion: 04/05/21 16:50 Dose: 500 mls/hr Documented by: Admin: 04/05/21 15:07 Dose: 500 mls/hr Documented by: ALISHA Lactated Ringer's (Ringers, Lactated) 1,000 mls @ 500 mls/hr IV ASDIRECTED LILIANA Sodium Chloride (Sodium Chloride 0.9% 10 Ml Syringe) 10 ml FLUSH ASDIRECTED PRN PRN Reason: TKO Last Admin: 04/05/21 15:07 Dose: 10 ml Documented by: Admin: 04/05/21 13:38 Dose: 10 ml Documented by: Admin: 04/05/21 12:21 Dose: 10 ml Documented by: Admin: 04/05/21 12:20 Dose: 10 ml Documented by: ALISHA Labs: Laboratory Tests 04/05/21 04/05/21 04/05/21 Range/Units 12:15 12:15 12:15 WBC 12.1 H (4.0-10.2) K/uL RBC 5.14 H (3.77-5.09) M/uL Hgb 16.3 H (11.7-15.5) g/dL Hct 47.6 H (34.0-46.0) % MCV 92.6 (84.0-98.0) fL MCH 31.7 (28.2-33.3) pg MCHC 34.2 (31.7-36.0) g/dL RDW 13.9 (11.2-14.1) % Plt Count 239 (150-350) K/uL Neut % (Auto) 85.5 H (45.0-80.0) % Lymph % (Auto) 8.5 L (10.0-50.0) % Barnes % (Auto) 5.6 (2.0-14.0) % Eos % (Auto) 0.2 (0.0-5.0) % Baso % (Auto) 0.2 (0.0-2.0) % Neut # (Auto) 10.30 H (1.40-7.00) K/uL Lymph # (Auto) 1.03 (0.50-3.50) K/uL Barnes # (Auto) 0.68 (0.00-1.00) K/uL Eos # (Auto) 0.02 (0.00-0.50) K/uL Baso # (Auto) 0.02 (0.00-0.20) K/uL PT 9.9 (9.5-12.0) SEC INR 1.0 Sodium 145 (136-145) mmol/L Potassium 3.5 (3.5-5.1) mmol/L Chloride 106 (98-107) mmol/L Carbon Dioxide 28.2 (21.0-32.0) mmol/L Anion Gap 10.8 (7-15) meq/L BUN 8 (7-18) mg/dL Creatinine 0.60 (0.51-1.17) mg/dL Est Cr Clr Drug Dosing TNP Estimated GFR (MDRD) > 60 mL/min Glucose 135 H (70-99) mg/dL Calcium 9.3 (8.5-10.1) mg/dL Phosphorus 4.1 (2.6-4.7) mg/dL Magnesium 2.1 (1.8-2.4) mg/dL Total Bilirubin 0.6 (0.2-1.0) mg/dL AST 18 (15-37) U/L ALT 27 (12-78) U/L Alkaline Phosphatase 136 H (46-116) IU/L C-Reactive Protein 2.1 H (<=0.9) mg/dL Total Protein 7.3 (6.4-8.2) g/dL Albumin 3.9 (3.4-5.0) g/dL Specimen Type Urine Color Urine Appearance Urine pH (5.0-9.0) Ur Specific [place] (1.005-1.030) Urine Protein (NEGATIVE) mg/dL Urine Glucose (UA) (NEGATIVE) mg/dL Urine Ketones (NEGATIVE) mg/dL Urine Occult Blood (NEGATIVE) Urine Nitrite (NEGATIVE) Urine Bilirubin (NEGATIVE) Urine Urobilinogen (0.2-1.0) E.U./dL Ur Leukocyte Esterase (NEGATIVE) Urine RBC /HPF Urine WBC /HPF Ur Epithelial Cells /LPF Urine Mucus (NEGATIVE) /LPF SARS-CoV-2 RNA (ALEX) (NEGATIVE) 04/05/21 04/05/21 Range/Units 13:10 15:30 WBC (4.0-10.2) K/uL RBC (3.77-5.09) M/uL Hgb (11.7-15.5) g/dL Hct (34.0-46.0) % MCV (84.0-98.0) fL MCH (28.2-33.3) pg MCHC (31.7-36.0) g/dL RDW (11.2-14.1) % Plt Count (150-350) K/uL Neut % (Auto) (45.0-80.0) % Lymph % (Auto) (10.0-50.0) % Barnes % (Auto) (2.0-14.0) % Eos % (Auto) (0.0-5.0) % Baso % (Auto) (0.0-2.0) % Neut # (Auto) (1.40-7.00) K/uL Lymph # (Auto) (0.50-3.50) K/uL Barnes # (Auto) (0.00-1.00) K/uL Eos # (Auto) (0.00-0.50) K/uL Baso # (Auto) (0.00-0.20) K/uL PT (9.5-12.0) SEC INR Sodium (136-145) mmol/L Potassium (3.5-5.1) mmol/L Chloride (98-107) mmol/L Carbon Dioxide (21.0-32.0) mmol/L Anion Gap (7-15) meq/L BUN (7-18) mg/dL Creatinine (0.51-1.17) mg/dL Est Cr Clr Drug Dosing Estimated GFR (MDRD) mL/min Glucose (70-99) mg/dL Calcium (8.5-10.1) mg/dL Phosphorus (2.6-4.7) mg/dL Magnesium (1.8-2.4) mg/dL Total Bilirubin (0.2-1.0) mg/dL AST (15-37) U/L ALT (12-78) U/L Alkaline Phosphatase (46-116) IU/L C-Reactive Protein (<=0.9) mg/dL Total Protein (6.4-8.2) g/dL Albumin (3.4-5.0) g/dL Specimen Type Urincc Urine Color Yellow Urine Appearance Clear Urine pH 7.0 (5.0-9.0) Ur Specific [place] >= 1.030 (1.005-1.030) Urine Protein Trace H (NEGATIVE) mg/dL Urine Glucose (UA) Negative (NEGATIVE) mg/dL Urine Ketones Negative (NEGATIVE) mg/dL Urine Occult Blood Trace-lysed H (NEGATIVE) Urine Nitrite Negative (NEGATIVE) Urine Bilirubin Negative (NEGATIVE) Urine Urobilinogen 0.2 (0.2-1.0) E.U./dL Ur Leukocyte Esterase Negative (NEGATIVE) Urine RBC 0-5 /HPF Urine WBC 0-5 /HPF Ur Epithelial Cells Few /LPF Urine Mucus Moderate H (NEGATIVE) /LPF SARS-CoV-2 RNA (ALEX) Negative (NEGATIVE) Meds: Medications Generic Name Dose Route Start Last Admin Trade Name Freq PRN Reason Stop Dose Admin Lactated Ringer's 1,000 mls @ 1,000 mls/hr 04/05/21 13:30 04/05/21 13:38 Ringers, Lactated IV 1,000 mls/hr ASDIRECTED LILIANA Administration Lactated Ringer's 1,000 mls @ 500 mls/hr 04/05/21 15:00 04/05/21 16:50 Ringers, Lactated IV 500 mls/hr ASDIRECTED LILIANA Administration Lactated Ringer's 1,000 mls @ 500 mls/hr 04/05/21 16:45 Ringers, Lactated IV ASDIRECTED LILIANA Sodium Chloride 10 ml 04/05/21 12:20 04/05/21 15:07 Sodium Chloride 0.9% 10 Ml Syringe FLUSH 10 ml ASDIRECTED PRN Administration TKO Discontinued Medications Generic Name Dose Route Start Last Admin Trade Name Freq PRN Reason Stop Dose Admin Hydromorphone HCl 1 mg 04/05/21 12:03 04/05/21 12:18 Hydromorphone 1 Mg/Ml Syringe IVPUSH 04/05/21 12:04 1 mg ONETIME ONE Administration Ketorolac Tromethamine 15 mg 04/05/21 16:21 04/05/21 16:33 Ketorolac 15 Mg/Ml Sdv IVPUSH 04/05/21 16:22 15 mg ONETIME ONE Administration Morphine Sulfate 4 mg 04/05/21 16:20 04/05/21 16:35 Morphine 4 Mg/Ml Syringe IVPUSH 04/05/21 16:21 4 mg ONETIME ONE Administration Norflurane Confirm 04/05/21 12:03 04/05/21 12:10 Norflurane/Hfc 245fa Medium Stream Comfort 103.5 Ml Can Administered 04/05/21 12:04 1 spray Dose Administration 103.5 ml .ROUTE .STK-MED ONE Ondansetron HCl 4 mg 04/05/21 12:03 04/05/21 12:19 Ondansetron 4 Mg/2 Ml Sdv IVPUSH 04/05/21 12:04 4 mg ONETIME ONE Administration Ondansetron HCl 4 mg 04/05/21 16:23 04/05/21 16:35 Ondansetron 4 Mg/2 Ml Sdv IVPUSH 04/05/21 16:24 4 mg ONETIME ONE Administration - Radiology Interpretation Free Text/Narrative:: Non-contrast CT abdomen and pelvis was obtained. No evidence of stone, hydronephrosis or other acute pathology noted. Departure - Departure Time of Disposition: 17:26 Disposition: Home, Self-Care 01 Clinical Impression: Dehydration - Discharge Information Instructions: Dehydration, Adult, [id number] Referrals: Keyana Mccormick PA-C [Primary Care Provider] - Forms: ED Department Discharge Additional Instructions: Home to rest. Tramadol 50mg 1 tab every 4-6 hours as needed for pain. Zofran ODT 4mg 1 tab dissolved under tongue every 4-6 hours as needed for nausea/vomiting. Recheck in clinic in 7-10 days, sooner if not improving. Return to ER if unable to hold down fluids, shortness of breath, or are unable to control the pain with the tramadol. Sepsis Event Note (ED) - Evaluation Sepsis Screening Result: No Definite Risk - Focused Exam Vital Signs: Vital Signs Temp Pulse Resp BP Pulse Ox 04/05/21 16:46 101 H 18 135/75 98 04/05/21 14:15 68 16 108/51 L 99 04/05/21 13:30 85 20 123/51 L 98 04/05/21 12:45 83 18 141/80 H 97 04/05/21 12:30 88 18 143/74 H 95 04/05/21 12:15 88 18 125/93 H 96 04/05/21 12:02 36.9 C 85 22 H 141/88 H 98 - Problem List Review Problem List Initiated/Reviewed/Updated: Yes - My Orders Last 24 Hours: My Active Orders 04/05/21 12:02 Implanted Port Access [RC] DAILY 04/05/21 12:20 Sodium Chloride 0.9% [Saline Flush] 10 ml FLUSH ASDIRECTED PRN 04/05/21 13:30 Lactated Ringers [Ringers, Lactated] 1,000 ml IV ASDIRECTED 04/05/21 15:00 Lactated Ringers [Ringers, Lactated] 1,000 ml IV ASDIRECTED 04/05/21 15:57 Abdomen Pelvis wo Cont [CT] Stat 04/05/21 16:45 Lactated Ringers [Ringers, Lactated] 1,000 ml IV ASDIRECTED - Assessment/Plan Last 24 Hours: My Active Orders 04/05/21 12:02 Implanted Port Access [RC] DAILY 04/05/21 12:20 Sodium Chloride 0.9% [Saline Flush] 10 ml FLUSH ASDIRECTED PRN 04/05/21 13:30 Lactated Ringers [Ringers, Lactated] 1,000 ml IV ASDIRECTED 04/05/21 15:00 Lactated Ringers [Ringers, Lactated] 1,000 ml IV ASDIRECTED 04/05/21 15:57 Abdomen Pelvis wo Cont [CT] Stat 04/05/21 16:45 Lactated Ringers [Ringers, Lactated] 1,000 ml IV ASDIRECTED Plan: Pt. was discharged. Pt. was well controlled. She was advised to continue tramadol 50mg 1 every 4-6 hours as needed for pain and zofran ODT 4 mg once every 6 hours. She was advised to stay on top of the pain. She was advised to increase her consumption of water. Her urine specific gravity was 1.030 only after 2 liters of lactated ringers. She was unable to produce a urine sample for approx. 3.5 hours. Certainly a component of her feeling unwell could be due to dehydration. She was advised to return to ER if she has worsening discomfort, fever, chills, etc. She was advised to definitely have her gallbladder removed in April as well.
[2021-04-05] MEDS ORDERED: Morphine 4 MG/ML Syringe IVPUSH ONE (16:20)
[2021-04-05] MEDS ORDERED: Ketorolac 15 MG/ML SDV IVPUSH ONE (16:21)
[2021-04-05 16:47] VITALS: BP 135/75; PULSE 101
== END 2021-04-05 17:34 | disposition home or self-care (01) ==
LOC: LL.ED 11:47
DX: E86.0 Dehydration (principal); J44.9 Chronic obstructive pulmonary disease, unspecified; Z88.0 Allergy status to penicillin; Z91.040 Latex allergy status; Z20.822 Contact with and (suspected) exposure to COVID-19
CPT/HCPCS: 36415; 74176; 80053; 81001; 83735; 84100; 85025; 85610; 86140; 96374; 96375; 96376; 99284; 99285-25; J1170; J1885; J2270; J2405; J7120; U0002

== ENCOUNTER 2021-05-17 07:47 | Day surgery (SDC) | payer OTHER ==
[2021-05-17] MEDS ORDERED: Sodium Chloride 0.9% 10 ML Syringe FLUSH PRN (08:00)
[2021-05-17] MEDS ORDERED: Lactated Ringers 1,000 ML IV SCH (08:00)
[2021-05-17] MEDS ORDERED: fentaNYL 250 MCG/5 ML SDV ONE ×2 (08:11→09:05)
[2021-05-17] MEDS ORDERED: Propofol 200 MG/20 ML SDV ONE ×2 (08:11→09:05)
[2021-05-17] MEDS ORDERED: Midazolam 1 MG/ML 2 ML SDV ONE ×2 (08:11→09:05)
[2021-05-17] MEDS ORDERED: Albuterol 0.083% 2.5 MG/3 ML Neb Soln NEB ONE (08:44)
[2021-05-17] MEDS ORDERED: Glycopyrrolate 0.2 MG/ML SDV ONE (09:05)
[2021-05-17] MEDS ORDERED: [UNRECOGNIZED DRUG - OTHER] ONE (09:05)
[2021-05-17] MEDS ORDERED: Rocuronium 100 MG/10 ML MDV ONE (09:05)
[2021-05-17] MEDS ORDERED: Ondansetron 4 MG/2 ML SDV ONE (09:05)
[2021-05-17] MEDS ORDERED: Neostigmine Methylsulfate 10 MG/10 ML MDV ONE (09:05)
[2021-05-17] MEDS ORDERED: Dexamethasone 10 MG/ML SDV ONE (09:05)
[2021-05-17] MEDS ORDERED: Succinylcholine 200 MG/10 ML MDV ONE (09:05)
[2021-05-17] MEDS ORDERED: Ketorolac 30 MG/ML SDV ONE (09:05)
--- NOTE | 2021-05-17 09:07 | PCM.PN ---
- General Info Date of Service: 05/17/21 - Review of Systems Systems Review Comment:: 61-year-old female here for cholecystectomy because of symptomatic cholelithiasis. She is feeling well today. 2 weeks ago her procedure was postponed because of respiratory congestion but she has received treatment and today her respiratory status has stable and baseline for her. I have again reviewed the proposed cholecystectomy with the patient and her . Questions addressed. Expected course and instructions reviewed. She agrees to proceed accepting risks. - Patient Data Weight - Most Recent: 74.389 kg Med Orders - Current: Current Medications Heparin Sodium (Porcine) (Heparin Sodium 100 Units/Ml 5 Ml Syringe) 500 units FLUSH ASDIRECTED PRN PRN Reason: flush Lactated Ringer's (Ringers, Lactated) 1,000 mls @ 125 mls/hr IV ASDIRECTED LILIANA Last Admin: 05/17/21 08:20 Dose: 125 mls/hr Documented by: Sodium Chloride (Sodium Chloride 0.9% 10 Ml Syringe) 10 ml FLUSH ASDIRECTED PRN PRN Reason: Keep Vein Open Discontinued Medications Albuterol (Albuterol 0.083% 2.5 Mg/3 Ml Neb Soln) 2.5 mg NEB ONETIME ONE Stop: 05/17/21 08:45 Last Admin: 05/17/21 08:53 Dose: 2.5 mg Documented by: Fentanyl (Fentanyl 250 Mcg/5 Ml Sdv) Confirm Administered Dose 250 mcg .ROUTE .STK-MED ONE Stop: 05/17/21 08:12 Midazolam HCl (Midazolam 1 Mg/Ml 2 Ml Sdv) Confirm Administered Dose 2 mg .ROUTE .STK-MED ONE Stop: 05/17/21 08:12 Propofol (Propofol 200 Mg/20 Ml Sdv) Confirm Administered Dose 200 mg .ROUTE .STK-MED ONE Stop: 05/17/21 08:12 - Problem List Review Problem List Initiated/Reviewed/Updated: Yes - My Orders Last 24 Hours: My Active Orders 05/16/21 Dinner Nothing Per Oral Diet [DIET] 05/17/21 08:00 Patient Status [ADT] Routine Central Line Insert Checklist [RC] ASDIRECTED Implanted Port Access [RC] ASDIRECTED Peripheral IV Care [RC] . DIRECTED Verify Patient Consent Obtain [RC] ASDIRECTED Heparin Sodium [Heparin Lock Flush 100 Units/ML] 500 units FLUSH ASDIRECTED PRN Lactated Ringers [Ringers, Lactated] 1,000 ml IV ASDIRECTED Sodium Chloride 0.9% [Saline Flush] 10 ml FLUSH ASDIRECTED PRN Peripheral IV Insertion Adult [OM.PC] Routine - Assessment Assessment:: Symptomatic cholelithiasis - Plan Plan:: Cholecystectomy
[2021-05-17] MEDS ORDERED: Bupivacaine 0.5% 10 ML SDV INJECT ONE (09:27)
[2021-05-17] MEDS ORDERED: Bacitracin Oint 1 GM U/D Packet TOP ONE (10:46)
--- NOTE | 2021-05-17 11:07 | PCM.OPNOTE ---
- General Post-Op/Procedure Note Date of Surgery/Procedure: 05/17/21 Operative Procedure(s): Laparoscopic cholecystectomy Findings: Chronically inflamed gallbladder with multiple stones Pre Op Diagnosis: Symptomatic cholelithiasis Post-Op Diagnosis: Same Anesthesia Technique: General ET Tube Primary Surgeon: He Da Silva Pathology: Gallbladder EBL in mLs: 10 Complications: None Condition: Good
[2021-05-17] MEDS ORDERED: fentaNYL 50 MCG/ML SDV IVPUSH ONE (11:32)
[2021-05-17] MEDS ORDERED: fentaNYL 100 MCG/2 ML SDV ONE (11:34)
--- NOTE | 2021-05-17 14:00 | OR ---
Date of Procedure: 05/17/2021 PREOPERATIVE DIAGNOSIS: Symptomatic cholelithiasis. POSTOPERATIVE DIAGNOSIS: Symptomatic cholelithiasis. OPERATION PERFORMED: Laparoscopic cholecystectomy. INDICATIONS FOR SURGERY: This 61-year-old female has a history of recurring postprandial right upper quadrant abdominal pain. Workup has identified cholelithiasis and she comes for cholecystectomy. FINDINGS: The gallbladder shows evidence of chronic inflammation with multiple fatty tissue adhesions to the undersurface. It contains multiple stones. The adjacent liver and visualized bowel appeared normal. There were adhesions in the lower abdomen because of previous surgery. DESCRIPTION OF PROCEDURE: The patient was taken to the operating room. She was given general endotracheal anesthesia. The abdomen was sterilely prepped and draped. A supraumbilical incision was made. Dissection proceeded down onto the underlying fascia and this was incised transversely under direct visualization. Using careful blunt dissection, the peritoneal cavity was then entered under direct visualization, the Juan 12 mm trocar was placed. It was secured with an anchoring Vicryl sutures placed at the corners of the incision. A 10 mm 0-degree laparoscopic camera was inserted and pneumoperitoneum to a pressure of 15 mmHg was achieved with carbon dioxide. Under direct visualization, 5 mm trocars were placed in the subxiphoid midline and in 2 areas of the right abdomen. All trocar sites were infiltrated with Marcaine prior to incision. Intraabdominal inspection was carried out and attention was turned to the gallbladder. It was secured with grasping forceps placed through the lateral trocars and retracted superiorly and anteriorly. Fatty tissue adhesions to the undersurface of the gallbladder were carefully cleared using both blunt and sharp dissection until the gallbladder was completely exposed. The peritoneum and fatty tissue overlying the cystic duct was cleared, and additional dissection identified the cystic artery. The cystic artery was doubly clipped and divided. The triangle of Calot was then cleared with cautery and blunt dissection, small additional vessels in the triangle of Calot were also controlled with clips. Once the triangle of Calot had been completely cleared and the cystic duct was clearly identified including obstruction of the gallbladder, the cystic duct was milked and then it was doubly clipped and divided near the gallbladder with great care being used to avoid any injury or compromise to the common bile duct. The gallbladder was then dissected free from the undersurface of the liver using the hook cautery device, and once completely free, it was extracted through the umbilical trocar site without difficulty. Reinspection of the gallbladder bed was performed and full hemostasis was assured with the use of electrocautery. With no sign of bleeding or any other complication, the trocars were removed under direct visualization and the pneumoperitoneum was evacuated. The periumbilical fascial incision was closed with interrupted [id number] #1 Vicryl sutures and wounds were all irrigated with Betadine and saline solution. Skin incisions approximated with interrupted 4-0 Vicryl in a subcuticular stitch, benzoin, Steri-Strips, followed by antibiotic ointment and sterile dressings were placed. The patient was then awakened, extubated, and taken from the operating room in satisfactory condition. ESTIMATED BLOOD LOSS: 10 mL. COMPLICATIONS: None. PROGNOSIS: Good. FLORINDA Da Silva MD /[id number] MTDD
[2021-05-17 15:46] VITALS: BP 111/67; PULSE 85
== END 2021-05-17 13:10 | disposition home or self-care (01) ==
LOC: LL.SDS 07:47
PROVIDERS: ATTEND Surgery
DX: K80.10 Calculus of gallbladder with chronic cholecystitis without obstruction (principal); J30.9 Allergic rhinitis, unspecified; Z79.899 Other long term (current) drug therapy; Z88.0 Allergy status to penicillin; Z88.8 Allergy status to other drugs, medicaments and biological substances; Z91.040 Latex allergy status
CPT/HCPCS: 00790; 47562; 94640; J0330; J0744; J1100; J1885; J2250; J2405; J2704; J2710; J3010; J3490; J7120; J7613-GY

== ENCOUNTER 2023-12-09 14:44 | Emergency (ER) | payer MEDICARE, OTHER ==
[2023-12-09 14:48] VITALS: BP 107/63; PULSE 78
== END 2023-12-09 15:30 | disposition home or self-care (01) ==
LOC: LL.ED 14:44
DX: M20.012 Mallet finger of left finger(s) (principal); K21.9 Gastro-esophageal reflux disease without esophagitis; F17.210 Nicotine dependence, cigarettes, uncomplicated; Z90.710 Acquired absence of both cervix and uterus; Z79.899 Other long term (current) drug therapy; Z88.0 Allergy status to penicillin; Z91.040 Latex allergy status; Z88.1 Allergy status to other antibiotic agents; Z88.8 Allergy status to other drugs, medicaments and biological substances; X58.XXXA Exposure to other specified factors, initial encounter
CPT/HCPCS: 73140-F2; 99283

== ENCOUNTER 2024-04-01 08:04 | Day surgery (SDC) | payer MEDICARE, OTHER ==
[~2024-04-01 08:04] MED LIST: Midazolam 1 MG/ML 2 ML SDV ONE; Propofol 200 MG/20 ML SDV ONE; Sodium Chloride 0.9% 10 ML Syringe FLUSH PRN
[2024-04-01] MEDS: Lactated Ringers 1,000 ML IV SCH (08:36)
[2024-04-01] MEDS ORDERED: Lidocaine 2% 5 ML SDV ONE (09:20)
[2024-04-01] MEDS ORDERED: Glycopyrrolate 0.2 MG/ML SDV IVPUSH ONE (09:20)
[2024-04-01] MEDS ORDERED: Propofol 200 MG/20 ML SDV ONE (10:00)
[2024-04-01 10:22] VITALS: BP 112/60; PULSE 74
== END 2024-04-01 10:40 | disposition home or self-care (01) ==
LOC: LL.SDS 08:04
PROVIDERS: ATTEND Surgery
DX: K21.00 Gastro-esophageal reflux disease with esophagitis, without bleeding (principal); F41.9 Anxiety disorder, unspecified; Z79.899 Other long term (current) drug therapy; Z88.0 Allergy status to penicillin; Z91.040 Latex allergy status
CPT/HCPCS: 88305; J2250; J2704; J3490; J7120